=== PATIENT | female | born 1990 | race Caucasian/White ===

== ENCOUNTER 2025-05-24 12:46 | Emergency (ER) | payer OTHER ==
[~2025-05-24] VITALS: Ht 167.6 cm; Wt 83.1 kg
[2025-05-24 12:55] VITALS: O2SAT 100
[2025-05-24 13:42] LABS: BASOPHILS % 0.8 % (0.0-2.0); EOSINOPHILS % 1.3 % (0.0-5.0); HEMATOCRIT. 39.8 % (36.0-48.0); HEMOGLOBIN. 13.5 g/dL (12.0-16.0); LYMPHOCYTES % 40.0 % (20.0-50.0); MEAN PLATELET VOLUME 9.0 fl (7.4-10.4); MONOCYTES % 6.6 % (2.0-8.0); NEUTROPHILS % 51.3 % (40.0-76.0); PLATELET 261 x1000/uL (130-400); RED BLOOD CELL COUNT 4.40 mill/uL (4.2-5.4); RED CELL DISTRIBUTION WIDTH 13.0 % (11.6-14.6)
[2025-05-24] MEDS: IOHEXOL-350 100 ML BOTTLE ONE (13:46)
[2025-05-24 13:49] LABS: INR 1.0
[2025-05-24 13:51] LABS: CREATININE 0.8 mg/dL (0.6-1.0); UREA NITROGEN BLOOD 8 mg/dL (9-23)
[2025-05-24 13:52] LABS: ETHANOL BLOOD < 10 mg/dL (<10); PROTEIN TOTAL 7.4 g/dL (6.0-8.3); TROPONIN I HIGH SENSITIVITY < 4 ng/L (3.0-34)
[2025-05-24 13:53] LABS: ASPARTATE AMINOTRANSFERASE 12 IU/L (<34); BILIRUBIN DIRECT 0.1 mg/dL (<=3.0); BILIRUBIN TOTAL 0.4 mg/dL (0.1-1.0)
[2025-05-24 13:59] LABS: HCG SCREEN NEGATIVE
[2025-05-24 14:25] LABS: CLARITY URINE CLEAR (CLEAR); COLOR URINE YELLOW (YELLOW); GLUCOSE URINE NEGATIVE (NEGATIVE); KETONES URINE NEGATIVE (NEGATIVE); LEUKOCYTE ESTERASE URINE NEGATIVE (NEGATIVE); NITRITE URINE NEGATIVE (NEGATIVE); OCCULT BLOOD URINE 2+ (NEGATIVE); PH URINE 6.5 (4.5-8.0); PROTEIN URINE NEGATIVE (NEGATIVE); SPECIFIC GRAVITY URINE 1.037 (1.005-1.030); UROBILINOGEN URINE 0.2 E.U./dL (0.2-1.0)
[2025-05-24 14:36] LABS: *AMPHETAMINES SCREEN URINE NEGATIVE (NEGATIVE); *BARBITURATES SCREEN URINE NEGATIVE (NEGATIVE); *BENZODIAZEPINES SCREEN URINE NEGATIVE (NEGATIVE); *COCAINE SCREEN URINE NEGATIVE (NEGATIVE); CANNABINOID URINE SCREEN NEGATIVE (NEGATIVE); ECSTASY MDMA SCREEN URINE NEGATIVE (NEGATIVE); METHADONE URINE SCREEN NEGATIVE (NEGATIVE); OPIATES URINE SCREEN NEGATIVE (NEGATIVE); PHENCYCLIDINE URINE SCREEN NEGATIVE (NEGATIVE)
[2025-05-24 14:51] LABS: BACTERIA URINE NONE SEEN; RBC URINE 15-25 /hpf (0-2); WBC URINE NONE SEEN /hpf (0-2)
[2025-05-24] MEDS: SODIUM CHLORIDE 0.9% 1,000 ML IV ONE (15:14)
[2025-05-24] MEDS: ONDANSETRON HCL 4MG/2ML INJ IV ONE (15:14)
[2025-05-24] MEDS: KETOROLAC 30MG/ML VIAL IV ONE (15:14)
[2025-05-24] MEDS: DIPHENHYDRAMINE 50MG/ML VIAL IV ONE (15:14)
[2025-05-24 15:18] VITALS: BP 115/80; PULSE 76; RESP 13; TEMP 37; O2SAT 100
== END 2025-05-24 15:23 | disposition home or self-care (01) ==
LOC: ER 12:46 → CANBEDREQ 15:14 → ER 15:23
DX: G43.909 Migraine, unspecified, not intractable, without status migrainosus (principal); Z79.899 Other long term (current) drug therapy; Z79.01 Long term (current) use of anticoagulants
CPT/HCPCS: 80076; 80305; 80048; 81003; 80320; 82962; 84703; 85025; 85610; 85730; 84484; 36415; 71045; 70496; 70498; 93005; 99285; Q9967; J7030; J1200; J1885; J2405; G0480